=== PATIENT | male | born 1955 | race Caucasian/White ===

== ENCOUNTER 2017-04-09 07:48 | Outpatient (CLI) | payer OTHER ==
[2017-04-09] VITALS (9 sets, daily range): BP systolic 92–122; BP diastolic 53–74
[~2017-04-09] VITALS: Ht 182.9 cm; Wt 117.0 kg
[2017-04-09] MEDS ORDERED: PROVENTIL HFA6.7 GM IH (08:13)
[2017-04-09 08:26] LABS: HEMATOCRIT 40.6 % (39.0-53.0); HEMOGLOBIN 13.3 g/dL (13.0-17.5); RED BLOOD COUNT 4.68 x10^6/uL (4.30-5.70); RED CELL DISTRIBUTION WIDTH 13.7 % (11.5-14.5); WHITE BLOOD COUNT 9.1 x10^3/uL (4.0-11.0)
[2017-04-09] MEDS ORDERED: ASPI-630 PO (08:30)
[2017-04-09] MEDS ORDERED: PREG150C PO (08:30)
[2017-04-09] MEDS ORDERED: RANI150T6 PO (08:30)
[2017-04-09] MEDS ORDERED: CYCL10TA2 PO (08:30)
[2017-04-09] MEDS ORDERED: TIOT18CA IH (08:30)
[2017-04-09] MEDS ORDERED: TRAM50TA PO (08:30)
[2017-04-09] MEDS ORDERED: METF500T4 PO (08:30)
[2017-04-09] MEDS ORDERED: METO25TA4 PO (08:30)
[2017-04-09] MEDS ORDERED: ATOR20TA58 PO (08:30)
[2017-04-09] MEDS ORDERED: MULT-658 PO (08:30)
[2017-04-09] MEDS ORDERED: TERA10CA3 PO (08:30)
[2017-04-09 08:32] LABS: CALCIUM 8.9 mg/dL (8.5-10.1); CREATININE 1.2 mg/dL (0.7-1.3)
[2017-04-09 08:50] LABS: PROTHROMBIN TIME PATIENT 12.6 SEC (11.7-14.0)
[2017-04-09] MEDS ORDERED: LIDOCAINE 2% 20 ML VIAL. ONE (09:04)
[2017-04-09] MEDS ORDERED: HEPARIN for ARTERIAL LINE 1,500 ML ONE (09:04)
[2017-04-09] MEDS ORDERED: IOHEXOL 300 MG/ML 100ML VIAL. ONE (09:04)
[2017-04-09] MEDS ORDERED: fentaNYL PF VIAL 250 MCG/5 ML VIAL ONE (09:11)
[2017-04-09] MEDS ORDERED: NITROGLYCERIN 200 MCG/2 ML SYRINGE FOR CATH/VASC LAB. ONE (09:11)
[2017-04-09] MEDS ORDERED: MIDAZOLAM HCL/PF 5 MG/5 ML VIAL. ONE (09:11)
[2017-04-09] MEDS ORDERED: VERAPAMIL 5 MG/2 ML VIAL. ONE (09:11)
[2017-04-09] MEDS ORDERED: HEPARIN for IV BOLUS 10,000 UNIT/10 ML VIAL. ONE (09:11)
[2017-04-09] MEDS ORDERED: HEPARIN for IV BOLUS 10,000 UNIT/10 ML VIAL. IART ONE (09:15)
[2017-04-09] MEDS ORDERED: IOHEXOL 300 MG/ML 100ML VIAL. IART ONE (09:15)
[2017-04-09] MEDS ORDERED: NITROGLYCERIN 200 MCG/2 ML SYRINGE FOR CATH/VASC LAB. IART ONE (09:15)
[2017-04-09] MEDS ORDERED: VERAPAMIL 5 MG/2 ML VIAL. IART ONE (09:15)
[2017-04-09] MEDS ORDERED: fentaNYL PF VIAL 250 MCG/5 ML VIAL IV ONE (09:15)
[2017-04-09] MEDS ORDERED: LIDOCAINE 2% 20 ML VIAL. IJ ONE (09:15)
[2017-04-09] MEDS ORDERED: MIDAZOLAM HCL/PF 5 MG/5 ML VIAL. IV ONE (09:15)
--- NOTE | 2017-04-09 10:01 | CARD ---
APPROVED REPORT Procedure(s) performed: Left Heart Catheterization, Coronary angiography Right transradial approach Moderate Sedation Time - 18 Minutes HISTORY The patient is a 61 year-old male with a history of : diabetes mellitus with treatment, hypertension, dyslipidemia. INDICATION The indication(s) include : positive stress test, unstable angina . CASE TECHNIQUE During this case, Fluoroscopy and low osmolar contrast were used for imaging. PROCEDURE NARRATIVE The patient was brought electively to the cardiac catheterization lab. A timeout was performed confi rming the patient's name, date of , procedure, and site of procedure. All necessary personnel w ere wearing the appropriate protective equipment and radiation monitor devices. After explaining the risks and benefits of the procedure and alternatives, informed consent was obtained. (See nursing no chelsey for medications administered). The right wrist was sterilely prepped and draped in the usual fas hion. The right wrist was infiltrated with 1 mL of 2% lidocaine for subcutaneous anesthesia. A 6 Fr ench Terumo glide sheath was inserted into the right radial artery without difficulty. Right and lef t coronary angiography was performed using a 6Fr TIG 4.0 catheter. Left ventricular end diastolic pr essure was obtained with a TIG catheter and pullback was performed. All catheter exchanges and advan cements were performed over a guidewire. At case completion the right radial sheath was removed and a Terumo radial band was applied with 13 ml of air. The patient tolerated the procedure well and the re were no immediate complications. HEMODYNAMICS: LVEDP 9 mm Hg No gradient on LV to aortic pullback. LEFT VENTRICULOGRAM: Deferred due to known normal EF. CORONARY ANGIOGRAPHY: LM is a large short caliber vessel with normal angiographic appearance. LAD is a large caliber vessel with a mid 30% stenosis. Ramus is a moderate caliber vessel with normal angiographic apeparance. LCx is a moderate caliber non-dominant vessel with mild luminal irregularities. LPL is a moderate caliber vessel with normal angiographic appearance. RCA is a large caliber dominant vessel with normal angiographic appearance. RPDA is a moderate caliber vessel with normal angiographic appearance. Conclusion 1. Normal LVEDP 2. No significant obstructive coronary disease. Recommendations Aggressive Medical Therapy
== END 2017-04-09 12:10 | disposition home or self-care (01) ==
LOC: CCL 07:48
PROVIDERS: ATTEND Internal Medicine Cardiovascular Disease
DX: I20.0 Unstable angina (principal); I10 Essential (primary) hypertension; E11.9 Type 2 diabetes mellitus without complications; E78.5 Hyperlipidemia, unspecified; E78.00 Pure hypercholesterolemia, unspecified; J44.9 Chronic obstructive pulmonary disease, unspecified; F17.200 Nicotine dependence, unspecified, uncomplicated; Z96.652 Presence of left artificial knee joint; Z79.01 Long term (current) use of anticoagulants
CPT/HCPCS: 36415; 80048; 85027; 85610; 85730; 93458; 99152; C1769; C1892; J2250; J3010; J3490; Q9967

== ENCOUNTER → 2018-07-30 | Day surgery (SDC) | payer OTHER ==
[~2018-07-30] MED LIST: ASPI-630 PO; ATOR20TA58 PO; CYCL10TA2 PO; HYDROmorphone 2 MG/ML VIAL IV PRN; IV RINGERS,LACTATED 1000ML 1,000 ML IV SCH; LIDOCAINE 1% PF 2 ML VIAL. ID PRN; LIDOCAINE 2% PF 2ML VIAL. ONE; METF500T16 PO; METO25TA4 PO; MORPHINE SULFATE 2 MG/ML VIAL. IV PRN; MULT-658 PO; ONDANSETRON PF 4 MG/2 ML VIAL. IV PRN; PREG150C PO; PROCHLORPERAZINE 10 MG/2 ML VIAL. IV PRN; PROPOFOL 20 ML IV ONE; PROVENTIL HFA6.7 GM IH; RANI150T21 PO; TERA10CA3 PO; TIOT18CA IH; TRAM50TA PO; fentaNYL PF VIAL 100 MCG/2 ML VIAL IV PRN
[2018-07-30 14:05] VITALS: BP 119/72
--- NOTE | 2018-08-02 18:06 | PATHOLOGY ---
[facility] Accession Number: [id number] . 01 Material submitted: . 120CM POLYP . 01 Clinician provided ICD-10: Z12.11 . 01 Clinical history: . Screening . 02 Diagnosis: Colon biopsies, polyp at 120 cm: - Tubular adenoma. . (JPM/at;08/02/2018) QTA/08/02/2018 . 02 Comment: There is no high grade dysplasia or evidence of malignancy. . 02 Electronically signed: . Clark Robles MD, Pathologist NPI- [id number] . 01 Gross description: . Received in formalin labeled "Clark Guerrero, 120 cm polyp," are 4 segments of grant soft tissue measuring 0.9 x 0.7 x 0.2 cm in aggregate dimensions and ranging from 0.3 to 0.4 cm in maximum dimension. The specimen is submitted entirely in cassette A1. (TSD; 07/30/2018) TOB/TOB . 02 Pathologist provided ICD-10: D12.6 . 02 CPT . 619503 Specimen Comment: A courtesy copy of this report has been sent to Specimen Comment: [phone], . Specimen Comment: Report sent to / DR [email or web address] Specimen Comment: A duplicate report has been generated due to demographic updates. Performed at: [facility] [address] [facility] [facility] [address], [place] [id number] MD Sandoval Luna MD Phone: [phone] Performed at: [facility] [address] [place], [place] [id number] MD Clark Robles MD Phone: [phone]
== END | disposition home or self-care (01) ==
LOC: ENDOS 11:50
PROVIDERS: ATTEND Surgery
DX: Z12.11 Encounter for screening for malignant neoplasm of colon (principal); D12.2 Benign neoplasm of ascending colon; K57.30 Diverticulosis of large intestine without perforation or abscess without bleeding
CPT/HCPCS: 45380; 88305; J2001; J2704